=== PATIENT | female | born 1935 | race Caucasian/White ===

== ENCOUNTER 2017-05-11 15:07 | Inpatient (IN) | payer OTHER ==
[~2017-05-11] VITALS: Ht 160 cm; Wt 69.9 kg
[~2017-05-11 15:07] MED LIST: TYLENOL WITH C1 EACH PO
[2017-05-11 16:42] LABS: MCH 27.8 PG (29.0-34.0); MCHC 31.9 G/DL (30.0-36.0); MCV 87.1 FL (83-99); MEAN PLAT.VOLUME 13.9 uM^3 (9.5-12.4); PLATELET COUNT 118 K/uL (156-360); RBC DIS.WIDTH-CV 14.8 % (11.8-14.6); RBC DIS.WIDTH-SD 47.4 % (39-53); RED BLOOD COUNT 4.25 M/uL (3.80-5.20); WHITE BLOOD COUNT 8.1 K/uL (4.1-10.2)
[2017-05-11 16:47] LABS: CHLORIDE 106 mEq/L (99-109); POTASSIUM 3.7 mEq/L (3.7-5.4); SODIUM 141 mEq/L (136-147)
[2017-05-11 16:49] LABS: GLUCOSE 153 mg/dL (70-99)
[2017-05-11 16:50] LABS: ANION GAP 12 MEQ/L (2-14)
[2017-05-11 16:51] LABS: TOTAL BILIRUBIN 0.9 mg/dL (0.0-1.0)
[2017-05-11 16:52] LABS: ALKALINE PHOSPHATASE 82 IU/L (3-129)
[2017-05-11 16:53] LABS: GFR ESTIMATE (CALCULATED) 42 mL/min/
[2017-05-11 16:54] LABS: UREA NITROGEN (BUN) 20 mg/dL (9-23)
[2017-05-11 17:25] LABS: C-REACTIVE PROTEIN 35.3 MG/L (0-10); SAMPLE HEMOLYSIS CHECK 0; SAMPLE ICTERIC CHECK 0; SAMPLE LIPEMIA CHECK 0
[2017-05-11] MEDS ORDERED: SILVER SULFADIA50 GM TP (19:04)
[2017-05-11] MEDS ORDERED: CEPHALEXIN500 MG PO (19:05)
[2017-05-11] MEDS ORDERED: IMBRUVICA140 MG PO (19:07)
[2017-05-11] MEDS ORDERED: QUINAPRIL HCL10 MG PO (19:08)
[2017-05-11] MEDS ORDERED: CITALOPRAM HBR20 MG PO (19:13)
[2017-05-11 20:44] VITALS: BP 182/84
[2017-05-11 23:26] VITALS: BP 153/70
[2017-05-12 06:18] LABS: EOSINOPHIL (%) 0.4 % (0-5); HEMATOCRIT 33.4 % (36.0-46.0); IMMATURE GRANULOCYTE (%) 0.4 % (0.0-0.7); INSTRUMENT ABS NEUTROPHIL CT 1.1 K/uL; LYMPHOCYTE COUNT 3.8 K/uL (1.0-2.8); MCH 28.5 PG (29.0-34.0); MCV 89.1 FL (83-99); MEAN PLAT.VOLUME 13.6 uM^3 (9.5-12.4); MONOCYTE COUNT 0.5 K/uL (0-0.8); NEUTROPHIL (%) 20.4 % (45-76); NEUTROPHIL COUNT 1.1 K/uL (1.8-6.4); PLATELET COUNT 97 K/uL (156-360); RBC DIS.WIDTH-CV 14.8 % (11.8-14.6); RBC DIS.WIDTH-SD 48.1 % (39-53); RED BLOOD COUNT 3.75 M/uL (3.80-5.20); WHITE BLOOD COUNT 5.5 K/uL (4.1-10.2)
[2017-05-12 07:00] VITALS: BP 145/69
[2017-05-12 10:21] LABS: Estimated Average Glucose 126 mg/dL (70-123)
[2017-05-12 15:49] VITALS: BP 123/71
[2017-05-13 00:44] VITALS: BP 130/64
[2017-05-13 07:42] VITALS: BP 132/70
[2017-05-13] MEDS ORDERED: DICLOXACILLIN500 MG PO (07:46)
== END 2017-05-13 13:40 | disposition home or self-care (01) | DRG 603 ==
LOC: EME 15:07 → 5EAST 19:23 → EDOF 19:23 → ENRESERV 19:28 → 5EAST 20:31
PROVIDERS: Internal Medicine; Physician Assistant; Physician Assistant Medical
DX: L03.115 Cellulitis of right lower limb (principal); C91.10 Chronic lymphocytic leukemia of B-cell type not having achieved remission; E11.65 Type 2 diabetes mellitus with hyperglycemia; N17.9 Acute kidney failure, unspecified; E87.5 Hyperkalemia; S80.811A Abrasion, right lower leg, initial encounter; W22.03XA Walked into furniture, initial encounter; I10 Essential (primary) hypertension; E78.5 Hyperlipidemia, unspecified; F32.9 Major depressive disorder, single episode, unspecified; I87.8 Other specified disorders of veins; D64.9 Anemia, unspecified; Z79.899 Other long term (current) drug therapy; Z85.828 Personal history of other malignant neoplasm of skin; Z82.49 Family history of ischemic heart disease and other diseases of the circulatory system
CPT/HCPCS: 80053; 83036; 83605; 85025; 85027; 86140; 87040; 90686; 93971; 99281; 99285; J0690; J1644; J3480

== ENCOUNTER 2017-12-27 20:25 | Emergency (ER) | payer OTHER ==
[~2017-12-27] VITALS: Ht 165.1 cm; Wt 76.0 kg
[~2017-12-27 20:25] MED LIST changes: +CEPHALEXIN500 MG PO; +CITALOPRAM HBR20 MG PO; +DICLOXACILLIN500 MG PO; +IMBRUVICA140 MG PO; +QUINAPRIL HCL10 MG PO; +SILVER SULFADIA50 GM TP
[2017-12-27 21:01] VITALS: BP 167/90
== END 2017-12-27 21:01 | disposition home or self-care (01) ==
LOC: EME 20:25
PROC: 0HQMXZZ Repair Right Foot Skin, External Approach (ICD-10-PCS; principal; 2017-12-27)
DX: S91.111A Laceration without foreign body of right great toe without damage to nail, initial encounter (principal); W01.0XXA Fall on same level from slipping, tripping and stumbling without subsequent striking against object, initial encounter; Y92.000 Kitchen of unspecified non-institutional (private) residence as the place of occurrence of the external cause
CPT/HCPCS: 99281; 99283